=== PATIENT | male | born 1960 | race Caucasian/White ===

== ENCOUNTER 2022-09-04 07:10 | Outpatient (CLI) | payer OTHER, SELFPAY ==
--- NOTE | 2022-09-04 08:21 | W.ANESCHARGE ---
Anesthesia Charges Start Date/Time Anesthesia Start Date: 09/04/22 Anesthesia Start Time: 07:57 Stop Date/Time Anesthesia Stop Date: 09/04/22 Anesthesia Stop Time: 08:20
--- NOTE | 2022-09-04 08:27 | W.ANESCHARGE ---
Anesthesia Charges Start Date/Time Anesthesia Start Date: 09/04/22 Anesthesia Start Time: 07:57 Stop Date/Time Anesthesia Stop Date: 09/04/22 Anesthesia Stop Time: 08:20
== END 2022-09-04 07:11 | disposition home or self-care (01) ==
LOC: OP CLINIC 07:14
PROVIDERS: PCP Family Medicine; Visit Provider Internal Medicine Gastroenterology
DX: R10.13 Epigastric pain (principal); K44.9 Diaphragmatic hernia without obstruction or gangrene; K21.9 Gastro-esophageal reflux disease without esophagitis; R12 Heartburn
CPT/HCPCS: 43239; 731; 88305; J2704; J3490

== ENCOUNTER 2024-06-19 13:00 | Outpatient (RCR) | payer MEDICARE, BC, SELFPAY ==
--- OUTSIDE RECORDS SUMMARY | 2024-05-26 12:57 | XMS_ITS | Data Portability ---
Author Organization [facility] Address [address] [place] [id number] Care Team Providers Care Survey Technologist Name Role Phone JUAN NAVA Primary Care Provider [phone] Assessment No assessment recorded. Plan of Treatment Reminders Order Date Submit Date Provider Last Modified By Organization Details Last Modified Time Details Appointments PSA 10 2024 10:00A M [facility] Not available Not available Not available ESTABL ISHED 10 2024 10:20A M Walker Krishnan MD Not available Not available Not available Lab urinal ysis, dipsti ck 2022 023 [facility], [address], [place], [address], 08/30/2022 11:36:12 urinal ysis, dipsti ck 2022 023 [facility], [address], [place], [address], 10/04/2022 16:51:10 PSA, serum or plasma 2022 023 [facility], [address], [place], [address], 02/28/2023 11:16:07 PSA, total, serum or plasma 2022 023 [email or web address] [facility], [address], [place], [address], 02/28/2023 12:03:42 PSA, serum or plasma 2023 024 [email or web address] [facility], [address], [place], [address], 08/29/2023 11:04:50 PSA, total, serum or plasma 2023 024 [email or web address] [facility], [address], [place], [address], 08/30/2023 10:44:45 PSA, serum or plasma 2023 024 [email or web address] [facility], [address], [place], [address], 03/03/2024 11:41:42 PSA, total, serum or plasma 2023 024 [email or web address] [facility], [address], [place], [address], 03/04/2024 08:16:00 Referral None record ed. Procedures None record ed. Surgeries transu rethra l resect ion of prosta te (SURG) 2022 023 [email or web address] Not available 09/04/2022 11:15:26 Imaging MRI, prosta te, w/wo contra st 2022 023 [email or web address] [facility] [place] [facility], [place], [id number], 10/05/2022 14:22:34 Medication Orders None record ed. Patient TargetsNo targets recorded. Patient Instructions Encounter Date Encounter Id Patient Instructions Last Modified By Organization Details Last Modified Time 10/04/2022 [id number] Discussion time - 30 minutes Not available 10/04/2022 17:55:21 Reason for Referral None Reported. Results Created Date Observation Date Name Description Value Unit Range Abnormal Flag Note LastModifiedBy Organization Detail LastModifiedTime 08/31/19 23 08/30/2022 urina lysis , dipst ick Color-Status Yellow Not Available [facility] [address], [place], [address], 08/30/2022 11:35:43 08/31/19 23 08/30/2022 urina lysis , dipst ick pH-Status 6.0 Not Available [facility] [address], [place], [address], 08/30/2022 11:35:43 08/31/19 23 08/30/2022 urina lysis , dipst ick Nitrates-Sta tus negati ve Not Available [facility] [address], [place], [address], 08/30/2022 11:35:43 08/31/19 23 08/30/2022 urina lysis , dipst ick Blood-Status Trace Not Available [facility] [address], [place], [address], 08/30/2022 11:35:43 08/31/19 23 08/30/2022 urina lysis , dipst ick Leuko-Status Negati ve Not Available [facility] [address], [place], [address], 08/30/2022 11:35:43 10/05/19 23 10/04/2022 URINE CULTU RE final report MICROB IOLOGY RESULT S SOURC E Void KNOWN ALLER GIES cital opram TREAT MENT none MEDIA PLATE D AT: Media plate d on 2022 @ 5:01 PM RESUL T No Growt h This lab resul t is being provi ded to you and your provi david at the same time in compl iance with the Centu ry Cures Act. Your provi david may not have had time to revie w and make recom menda tions based on the resul t. Pleas e allow up to one week for provi david revie w. Not Available [facility] [address], [place], [address], 10/07/2022 14:34:02 10/05/19 23 10/04/2022 urina lysis , dipst ick Color-Status Yellow Not Available [facility] [address], [place], [address], 10/04/2022 16:48:55 10/05/19 23 10/04/2022 urina lysis , dipst ick Clarity-Stat us Clear Not Available [facility] [address], [place], [address], 10/04/2022 16:48:55 10/05/19 23 10/04/2022 urina lysis , dipst ick Glucose-Stat us Negati ve Not Available [facility] [address], [place], [address], 10/04/2022 16:48:55 10/05/19 23 10/04/2022 urina lysis , dipst ick Bilirubin-St atus Negati ve Not Available [facility] [address], [place], [address], 10/04/2022 16:48:55 10/05/19 23 10/04/2022 urina lysis , dipst ick Ketones-Stat us Negati ve Not Available [facility] [address], [place], [address], 10/04/2022 16:48:55 10/05/19 23 10/04/2022 urina lysis , dipst ick Nitrates-Sta tus negati ve Not Available [facility] [address], [place], [address], 10/04/2022 16:48:55 10/05/19 23 10/04/2022 urina lysis , dipst ick Blood-Status Large Not Available [facility] [address], [place], [address], 10/04/2022 16:48:55 10/05/19 23 10/04/2022 urina lysis , dipst ick Leuko-Status Small Not Available [facility] [address], [place], [address], 10/04/2022 16:48:55 02/29/20 23 02/28/2023 PSA, serum or plasm a PSA 0.89 ng/mL 0-4.0 Not Available [facility] [address], [place], [address], 02/28/2023 11:15:51 08/29/19 24 08/29/2023 PSA, serum or plasm a PSA 0.78 ng/mL 0-4.0 Not Available [facility] [address], [place], [address], 08/29/2023 11:04:19 03/03/20 24 03/03/2024 PSA, serum or plasm a PSA 0.87ng /mL 0-4.0 NG/mL Not Available [facility] [address], [place], [address], 02/21/2024 14:47:48 09/01/19 23 08/30/2022 bladd er scan (PROC ) No observ ation record ed. BARCODE Not Available 2022 09:06:49 10/06/19 23 10/04/2022 bladd er scan (PROC ) No observ ation record ed. BARCODE Not Available 2022 09:07:29 10/25/19 23 10/24/2022 MRI, prost ate, w/wo contr ast No observ ation record ed. [email or web address] [facility] [place] [address], [place], [address], 11/15/2022 16:57:11 Result Notes None recorded. Procedures Surgical History Date Name Laterality Status Provider Name and Address Organization Details Recorded Time 03/03/20 24 Blood Draw/OBSTETRICIAN GYNECOLOGIST/PSA RESULTS completed Abimael lamb [facility] 03/03/2024 11:22:29 08/29/19 24 OBSTETRICIAN GYNECOLOGIST/blood draw completed Dixie Araya [facility] 08/29/2023 11:04:15 08/29/19 24 Bladder Scan completed Dixie Araya [facility] 08/29/2023 11:21:08 02/29/20 23 Bladder Scan completed Dixie Marshal [facility] 02/28/2023 11:15:37 02/29/20 23 Blood Draw/OBSTETRICIAN GYNECOLOGIST/PSA RESULTS completed Dixielaura Araya [facility] 02/28/2023 11:15:47 10/05/19 23 Bladder Scan completed Walker Krishnan MD [address] [place] [address],[address] [place] [address], [address], [facility] 10/04/2022 16:48:49 09/15/19 23 TRANSURETHRAL RESECTION OF PROSTATE (SURG) completed Amparo Rodríguez [facility] 09/15/2022 11:48:07 08/31/19 23 Bladder Scan completed Walker Krishnan MD [address] [place] [address],[address] [place] [address], [address], [facility] 08/30/2022 11:35:35 04/12/20 Bladder Scan completed Peri Garnica [facility] 04/12/2022 14:35:56 12/31/19 22 Bladder Scan completed Walker Krishnan MD [address] [place] [address],[address], [address], [facility] 12/30/2021 12:47:29 03/03/20 21 Colonoscopy completed Walker Krishnan MD [address] [place] [address],[address], [place], [address], [facility] 12/30/2021 12:45:11 Removal of testis completed Walker lui MD [address] [place] [address],[address], [address], [facility] 12/30/2021 12:46:38 thyroidectomy completed Walker Krishnan MD [address], [place], [address], [facility] 12/30/2021 12:45:57 Imaging Results Imaging Date Name Status LastModified by Organiz ation Details LastModified Time 08/30/2022 bladder scan (PROC) completed BARCODE Information not available 08/31/2022 09:06:49 10/04/2022 bladder scan (PROC) completed BARCODE Information not available 10/05/2022 09:07:29 10/24/2022 MRI, prostate, w/wo contrast completed [email or web address] [facility] [place] [address], [place], [address], 11/15/2022 16:57:11 Procedure Notes None recorded. Medical Equipment None Reported. Allergies Allergen ID Allergen Name Allergen Category Reaction Reaction Severity Criticality Documentation Date Start Date Code Code System Note Provider Name and Address Organization Details Recorded Time [id number] citalopra m medicatio n Not available Not available Not available 12/30/2021 2556 RxNorm Not Available Not Available Not Available Medications Name Sig Start Date Stop Date Status Note LastModified by Organization Details LastModified Time atorvastati n 40 mg tablet TAKE ONE TABLET BY MOUTH ONE TIME DAILY* active Not Available Not Available No t Available levothyroxi ne 137 mcg tablet TAKE ONE TABLET BY MOUTH ONE TIME DAILY BEFORE BREAKFAST * active Not Available Not Available No t Available prednisone 20 mg tablet TAKE 2 TABLETS BY MOUTH DAILY FOR 5 DAYS. 04/12 completed Not Available Not Available Not Available amlodipine 2.5 mg tablet TAKE ONE TABLET BY MOUTH ONE TIME DAILY* 03/03 completed Not Available Not Available Not Available amlodipine 5 mg tablet TAKE ONE TABLET BY MOUTH ONE TIME DAILY* active Not Available Not Available No t Available prochlorper azine maleate 10 mg tablet TAKE ONE TABLET BY MOUTH EVERY SIX HOURS NEEDED FOR NAUSEA AND VOMITING* 03/03 completed Not Available Not Available Not Available pantoprazol e 20 mg tablet,nicki yed release TAKE 2 TABLETS BY MOUTH EVERY DAY 12/30 completed Not Available Not Available Not Available meclizine 25 mg tablet take 0.5 - 1 tablet by mouth three times daily as needed.* 03/03 completed Not Available Not Available Not Available pantoprazol e 40 mg tablet,nicki yed release TAKE ONE TABLET BY MOUTH ONE TIME DAILY* active Not Available Not Available No t Available losartan 25 mg tablet TAKE ONE TABLET BY MOUTH ONE TIME DAILY* active Not Available Not Available No t Available montelukast 10 mg tablet TAKE ONE TABLET BY MOUTH AT BEDTIME* 03/03 completed Not Available Not Available Not Available cefuroxime axetil 500 mg tablet 10/04 completed Not Available Not Available Not Available albuterol sulfate HFA 90 mcg/actuati on aerosol inhaler INHALE 1 TO 2 PUFFS BY MOUTH EVERY 4 HOURS IF NEEDED. 02/28 completed Not Available Not Available Not Available fluticasone propionate 50 mcg/actuati on nasal spray,suspe nsion Inhale 2 Sprays into both nostrils once daily.* active Not Available Not Available No t Available calcitriol 0.25 mcg capsule TAKE ONE CAPSULE BY MOUTH ONE TIME DAILY* active Not Available Not Available No t Available finasteride 5 mg tablet TAKE 1 TABLET BY MOUTH EVERY DAY IN THE MORNING 02/28 completed Not Available Not Available Not Available rizatriptan 5 mg tablet TAKE 1 - 2 TABLETS BY MOUTH AT THE FIRST SIGN OF MIGRAINE. MAY REPEAT AGAIN AFTER 2 HOURS. DO NOT EXCEED 6 TABLETS (30MG) IN 24 HOURS. MUST 10/04 completed Not Available Not Available Not Available tadalafil 5 mg tablet Take 1 Tablet (5 mg) by mouth once daily.* 02/28 completed Not Available Not Available Not Available hydrochloro thiazide 12.5 mg tablet TAKE ONE TABLET BY MOUTH ONE TIME DAILY* active Not Available Not Available No t Available Dulera 200 mcg-5 mcg/actuati on HFA aerosol inhaler INHALE 2 PUFFS BY MOUTH TWICE A DAY 10/04 completed Not Available Not Available Not Available calcium 1,000 mg (as carbonate)- vitamin D3 20 mcg (800 unit) tablet TAKE 3 TABLETS BY MOUTH EVERY DAY active Not Available Not Available No t Available fluticasone 113 mcg-salmete rol 14 mcg/actuati on breath activated powdr INHALE ONE PUFF BY MOUTH TWICE DAILY. RINSE MOUTH 10/04 completed Not Available Not Available Not Available BinaxNOW COVID-19 Ag Self Test kit USE DIRECTED PER PACKAGING . 12/30 completed Not Available Not Available Not Available Paxlovid 300 mg (150 mg x 2)-100 mg tablets in a dose pack PLEASE SEE ATTACHED FOR DETAILED DIRECTION S 12/30 completed Not Available Not Available Not Available Vitals Date Recorded Body height Body mass index (BMI) Body weight Provider Name and Address Organization Details Last Updated DateTime 08/30/2022 187.96 cm 27 kg/m2 87635.4 g Walker Krishnan MD [address] [place] [address],[address] [place] [address] 08/30/2022 11:34:35 Date Recorded Body height Body mass index (BMI) Body weight Provider Name and Address Organization Details Last Updated DateTime 10/04/2022 187.96 cm 27.6 kg/m2 49379.36 g Walker Krishnan MD [address] [place], [place] [address] [place] [address] 10/04/2022 16:44:19 Date Recorded Body height Body mass index (BMI) Body weight Provider Name and Address Organization Details Last Updated DateTime 02/28/2023 187.96 cm 27.6 kg/m2 [address] [facility] 02/28/2023 11:13:39 Date Recorded Body height Body mass index (BMI) Body weight Provider Name and Address Organization Details Last Updated DateTime 08/29/2023 187.96 cm 27.6 kg/m2 11514.36 cindi Araya [facility] 08/29/2023 11:11:25 Date Recorded Body height Body mass index (BMI) Body weight Provider Name and Address Organization Details Last Updated DateTime 03/03/2024 187.96 cm 27.6 kg/m2 95084.36 cindi salazar [facility] 03/03/2024 11:20:42 Social History Question Answer Notes LastModified by Organizat ion Details LastModified Time Tobacco Smoking Status Never Smoker Walker Krishnan MD [address] [place] [address],[address], [address] [place] [address] [facility] 12/30/2021 12:44:46 What Is Your Level Of Alcohol Consumption? Occasional Information not available 12/30/2021 How Many Times Per Week Do You Consume Alcohol? 1-2 Times Per Week Information not available 10/04/2022 What Is Your Level Of Caffeine Consumption? Occasional [email or web address] Information not available 08/29/2023 Are You Currently Employed? No Information not available 10/04/2022 Recreational Drug Use No Information not available 10/04/2022 What Was The Date Of Your Most Recent Tobacco Screening? 03/03/2024 [email or web address] Information not available 03/03/2024 Have You Ever Been Counseled For Unhealthy Alcohol Use? No [email or web address] Information not available 08/29/2023 What Is Your Relationship Status? Information not available 10/04/2022 Do You Use Any Illicit Or Recreational Drugs? No [email or web address] Information not available 08/29/2023 Has Tobacco Cessation Counseling Been Provided? No Information not available 10/04/2022 How Many Days In The Past Year Have You Consumed 5 Or More Drinks? -1 [email or web address] Information not available 08/29/2023 Sex: Unknown Functional Status None recorded. Mental Status None recorded. Family History Relationship Description Onset Age of this Age Resolved Age Notes LastModified by Organization Details LastModified Time Father No current problems or disability Not available 12/30 12:44:26 Mother No current problems or disability Not available 12/30 12:44:26 Medical History Condition Response High Blood Pressure Y Kidney Stones N Depression N Lung Disease N GERD/Acid Reflux Y Sexually Transmitted Infection N Cancer Y High Cholesterol Y Diabetes N Bleeding Disorder N Heart Disease N Immunizations Vaccine Type Date Status Note Provider Nam e and Address Organization Details Recorded Time COVID-19, mRNA, LNP-S, bivalent, PF, 50 mcg/0.5 mL or 25mcg/0.25 mL dose 2 completed [facility] 08/29/2023 11:11:32 Influenza, split virus, quadrivalent, PF 2 completed [facility] 08/29/2023 11:11:32 Tdap 2 completed Abimael lamb null, [facility] 03/03/2024 11:20:47 COVID-19, mRNA, LNP-S, PF, 100 mcg/0.5mL dose or 50 mcg/0.25mL dose 1 completed Walker Krishnan MD [address] [place] [address],[address], [address], [facility] 12/30/2021 12:42:39 pneumococcal polysaccharide PPV23 9 completed Walker Krishnan MD [address] [place] [address],[address], [address], [facility] 12/30/2021 12:42:39 COVID-19, mRNA, LNP-S, PF, 100 mcg/0.5mL dose or 50 mcg/0.25mL dose 1 completed Walker Krishnan MD [address] [place] [address],[address] [place] [address], [address], [facility] 12/30/2021 12:42:39 COVID-19, mRNA, LNP-S, PF, 100 mcg/0.5mL dose or 50 mcg/0.25mL dose 1 completed Walker Krishnan MD [address] [place] [address],[address], [place], [address], [facility] 12/30/2021 12:42:39 Influenza, split virus, quadrivalent, preservative 7 completed Dixie Grossmanoza null, [facility] 02/28/2023 11:13:48 zoster recombinant 9 completed Dixie Araya null, [facility] 02/28/2023 11:13:48 zoster recombinant 9 completed Dixie Araya null, [facility] 02/28/2023 11:13:48 MMRV 9 completed Dixie Grossmanoza null, [facility] 02/28/2023 11:13:48 COVID-19, mRNA, LNP-S, PF, 100 mcg/0.5mL dose or 50 mcg/0.25mL dose 2 completed Dixie Grossmanoza null, [facility] 02/28/2023 11:13:48 Tdap 2 completed Dixie Grossmanoza null, [facility] 02/28/2023 11:13:48 Influenza, split virus, quadrivalent, PF 0 completed Dixielaura Grossmanoza null, [facility] 02/28/2023 11:13:48 Influenza, split virus, quadrivalent, PF 9 completed Dixie Araya null, [facility] 02/28/2023 11:13:48 Influenza, split virus, quadrivalent, PF 5 completed Dixie Araya null, [facility] 02/28/2023 11:13:48 Influenza, split virus, quadrivalent, PF 1 completed Dixielaura Fairbanksa null, [facility] 02/28/2023 11:13:48 Influenza, split virus, quadrivalent, PF 6 completed Dixie Araya null, [facility] 02/28/2023 11:13:48 Influenza, split virus, quadrivalent, PF 8 completed Dixie Araya null, [facility] 02/28/2023 11:13:49 Past Encounters Encounter ID Performer Location Encounter Start Date Encounter Closed Date Diagnosis/Indication Diagnosis SNOMED-CT Code Diagnosis ICD10 Code [id number] MD BARBIE [facility] [address] [place] [address] 12/30/2021 12:03:19 01/02/2022 12:13:20 Lower urinary tract symptoms due to benign prostatic hypertrophy 4413800178 9101 N40.1 [id number] MD BARBIE [facility] [address] [place] [address] 04/12/2022 14:07:27 04/17/2022 12:34:29 Lower urinary tract symptoms due to benign prostatic hypertrophy 9264770231 9101 N40.1 [id number] MD BARBIE [facility] [address] [place] [address] 08/30/2022 11:13:19 09/01/2022 09:52:35 Lower urinary tract symptoms due to benign prostatic hypertrophy 0104277788 9101 N40.1 [id number] [facility] [address] [place] [address] 10/04/2022 16:03:36 10/09/2022 11:24:18 Lower urinary tract symptoms due to benign prostatic hypertrophy 9199285591 9101 N40.1 Carcinoma of prostate 25 5949933 C61 Slowing of urinary stream 03387373 R39.12 [id number] Walker Krishnan MD _[facility] [address] [place] [id number] 02/28/2023 10:29:37 03/10/2023 14:05:17 Carcinoma of prostate 932766250 C61 Lower urin maik tract symptoms due to benign prostatic hypertrophy 7493096910 9101 N40.1 [id number] Walker Krish[facility] [address] [place] [id number] 08/29/2023 10:14:37 09/03/2023 11:32:01 Carcinoma of prostate 069972972 C61 Lower urin maik tract symptoms due to benign prostatic hypertrophy 2317573947 9101 N40.1 [id number] Walker Krishnan MD [facility] [employer] [place] [id number] 03/03/2024 10:46:03 03/04/2024 10:23:39 Carcinoma of prostate 057953825 C61 Lower urin maik tract symptoms due to benign prostatic hypertrophy 2218113222 9101 N40.1 Health Concerns Section Related Observation LastModified by Organization Detai ls LastModified Time None Recorded Concern Status LastModified by Organization Details LastModified Time None Recorded Advance Directives Directive None Recorded Payers Encounter Date Sequence Insurance Name Policy Number Policy Nguyễn Covered Member ID Nguyễn Member ID Guarantor Name 08/30/2022 1 [employer] - INDIVIDUAL [employer] FAMILY (O) [id number] Zain Lance [id number] Zain Lance 10/04/2022 1 [employer] - INDIV[employer]UAL [employer] FAMILY (O) [id number] Zain Lance [id number] Zain Lance 02/28/2023 1 [facility] - INDIVIDUAL AND FAMILY ([facility] [id number] Zain Lance [id number] Zain Lance 08/29/2023 1 [facility] - INDIVIDUAL AND FAMILY ([facility] [id number] Zain Lance [id number] Zain Lance 03/03/2024 2 [id number] Zain Lance [id number] Zain Lance Notes Date Note Type Note Provider Name and Address Organization Details Recorded Time 08/30/2022 text/html 61 yo male with 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 He reports persistent issues with dizziness and vertigo over the past year. He stopped Flomax - due to nasal stuffiness and dizziness.He is on Proscar 5 mg daily (started February 2016) and Cialis 5 mg daily. 08/08/21 - He presents for evaluation of hematuria (one episode of blood in toilet - had dysuria at that time). He He voids every 3-4 hours during the day and 1-2x/night. He denies hesitancy, intermittent flow, and dysuria. (declined Cystoscopy) 12/30/21 - He presents for follow-up on urination. He had to hold Cialis for a week (while taking Paxlovid for COVID). He reports significant worsening of his symptoms (hesitancy, slow stream, and frequency). He restarted it this week and his urination is better. He voids every 3-4 hours during the day and 2-3x/night. 04/12/22 - He presents for follow-up urination. He is voiding okay - denies hesitancy, urgency, and dysuria. He will be traveling to [facility] (Jul) and [place] (January). 08/30/22 - He presents for follow-up on urination. He voids every 2-4 hours during the day and 2-3x/night. He reports hesitancy and slow stream - denies dysuria. He would like to stop medications for BPH if possible.- UA - trace blood, neg yoshi- PVR = 157 mL PSA - 1.47 (03/10/11)- 1.85 (03/15/12)- 1.39 (03/28/13)- 2.68 (03/28/14)- 1.70 (04/02/15)- 1.42 (03/22/16)- 1.50 (04/16/17)- 0.90 (05/07/18)- 0.82 (04/22/19)- 0.99 (07/19/20)- 0.88 (09/06/21)- 1.0 (08/22/22) CT Urogram (05/11/21) - Right - 3 (1mm) stones in kidney- + Bilateral renal scarring - no renal masses or filling defects- Prostate - 30 gm (with intravesical median lobe) Walker Krishnan MD [address], [place], [address], [facility] 08/30/2022 12:21:45 10/04/2022 text/html 61 yo male with Prostate cancer - pT1b William 3+3 = 6 (6% of tissue) (dx 09/14/22) and 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 He reports persistent issues with dizziness and vertigo over the past year. He stopped Flomax - due to nasal stuffiness and dizziness.He is on Proscar 5 mg daily (started February 2016) and Cialis 5 mg daily. 08/08/21 - He presents for evaluation of hematuria (one episode of blood in toilet - had dysuria at that time). He He voids every 3-4 hours during the day and 1-2x/night. He denies hesitancy, intermittent flow, and dysuria. (declined Cystoscopy) 12/30/21 - He presents for follow-up on urination. He had to hold Cialis for a week (while taking Paxlovid for COVID). He reports significant worsening of his symptoms (hesitancy, slow stream, and frequency). He restarted it this week and his urination is better. He voids every 3-4 hours during the day and 2-3x/night. 04/12/22 - He presents for follow-up urination. He is voiding okay - denies hesitancy, urgency, and dysuria. He will be traveling to [facility] (Jul) and [place] (January). - s/p TURP (09/14/22) - 11 gm - Prostate cancer - pT1b [place] 3+3 = 6 (6% of tissue) 10/05/23 - He presents for follow-up on urination and Prostate cancer. He voids every 2-3 hours during the day and 1x/night. He denies hesitancy or dysuria. His stream is strong - denies dysuria.- UA = large blood - small LE- PVR = 0 mL PSA - 1.47 (03/10/11)- 1.85 (03/15/12)- 1.39 (03/28/13)- 2.68 (03/28/14)- 1.70 (04/02/15)- 1.42 (03/22/16)- 1.50 (04/16/17)- 0.90 (05/07/18)- 0.82 (04/22/19)- 0.99 (07/19/20)- 0.88 (09/06/21)- 1.0 (08/22/22) CT Urogram (05/11/21) - Right - 3 (1mm) stones in kidney- + Bilateral renal scarring - no renal masses or filling defects- Prostate - 30 gm (with intravesical median lobe) Walker Krishnan MD [address] [facility],[address], [place], [address], [facility] 10/04/2022 17:55:35 02/28/2023 text/html 62 yo male with Prostate cancer - pT1b [place] 3+3 = 6 (6% of tissue) (dx 09/14/22) and 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 He reports persistent issues with dizziness and vertigo over the past year. He stopped Flomax - due to nasal stuffiness and dizziness.He was on Proscar 5 mg daily (February 2016) - November 2022) and Cialis 5 mg daily. - s/p TURP (09/14/22) - 11 gm - Prostate cancer - pT1b [place] 3+3 = 6 (6% of tissue)- [place]ipher - 0.34 (low risk)- on Active surveillance 10/04/22 - He presents for follow-up on urination and Prostate cancer. He voids every 2-3 hours during the day and 1x/night. He denies hesitancy or dysuria. His stream is strong - denies dysuria. 02/28/23 - He presents for follow-up on Prostate cancer and urination. He denies trouble with urination. He voids every 2-4 hours during the day and 1x/night. He stopped Finasteride and Cialis in November 2022.- PSA = 0.89- PVR - 48mL PSA - 1.47 (03/10/11)- 1.85 (03/15/12)- 1.39 (03/28/13)- 2.68 (03/28/14)- 1.70 (04/02/15)- 1.42 (03/22/16)- 1.50 (04/16/17)- 0.90 (05/07/18)- 0.82 (04/22/19)- 0.99 (07/19/20)- 0.88 (09/06/21)- 1.0 (08/22/22)- 0.89 (02/28/23) Prostate MRI (10/24/22) - 14 gm - + TUR defect - no suspicious lesions [place] - 0.34 (low risk) CT Urogram (05/11/21) - Right - 3 (1mm) stones in kidney- + Bilateral renal scarring - no renal masses or filling defects- Prostate - 30 gm (with intravesical median lobe) Walker Krishnan MD [address] [facility],[address], [place], [address], [place] - [facility] 03/01/2023 19:30:08 08/29/2023 text/html 62 yo male with Prostate cancer - pT1b [place] 3+3 = 6 (6% of tissue) (dx 09/14/22) and 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 He reports persistent issues with dizziness and vertigo over the past year. He stopped Flomax - due to nasal stuffiness and dizziness.He was on Proscar 5 mg daily (February 2016) - November 2022) and Cialis 5 mg daily. - s/p TURP (09/14/22) - 11 gm - Prostate cancer - pT1b [place] 3+3 = 6 (6% of tissue)- [place] - 0.34 (low risk)- on Active surveillance 10/04/22 - He presents for follow-up on urination and Prostate cancer. He voids every 2-3 hours during the day and 1x/night. He denies hesitancy or dysuria. His stream is strong - denies dysuria. 02/28/23 - He presents for follow-up on Prostate cancer and urination. He denies trouble with urination. He voids every 2-4 hours during the day and 1x/night. He stopped Finasteride and Cialis in November 2022. 08/29/23- He presents for follow-up on Prostate cancer and urination. He voids every 2-4 hours during the day and 1x/night.- PSA = 0.78- PVR - 0 mL PSA - 1.47 (03/10/11)- 1.85 (03/15/12)- 1.39 (03/28/13)- 2.68 (03/28/14)- 1.70 (04/02/15)- 1.42 (03/22/16)- 1.50 (04/16/17)- 0.90 (05/07/18)- 0.82 (04/22/19)- 0.99 (07/19/20)- 0.88 (09/06/21)- 1.0 (08/22/22)- 0.89 (02/28/23)- 0.78 (08/29/23) Prostate MRI (10/24/22) - 14 gm - + TUR defect - no suspicious lesions [place] - 0.34 (low risk) CT Urogram (05/11/21) - Right - 3 (1mm) stones in kidney- + Bilateral renal scarring - no renal masses or filling defects- Prostate - 30 gm (with intravesical median lobe) Walker Krishnan MD [address] [facility],[address], [place], [address], [facility] 09/01/2023 18:48:28 03/03/2024 text/html 63 yo male with Prostate cancer - pT1b [place] 3+3 = 6 (6% of tissue) (dx 09/14/22) and 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 He reports persistent issues with dizziness and vertigo over the past year. He stopped Flomax - due to nasal stuffiness and dizziness.He was on Proscar 5 mg daily (February 2016) - November 2022) and Cialis 5 mg daily. - s/p TURP (09/14/22) - 11 gm - Prostate cancer - pT1b [place] 3+3=6 (6% of tissue)- [place] - 0.34 (low risk)- on Active surveillance 10/04/22 - He presents for follow-up on urination and Prostate cancer. He voids every 2-3 hours during the day and 1x/night. He denies hesitancy or dysuria. His stream is strong - denies dysuria. 02/28/23 - He presents for follow-up on Prostate cancer and urination. He denies trouble with urination. He voids every 2-4 hours during the day and 1x/night. He stopped Finasteride and Cialis in November 2022. 08/29/23- He presents for follow-up on Prostate cancer and urination. He voids every 2-4 hours during the day and 1x/night. 03/03/24e presents for follow-up on Prostate cancer and urination. He voids every 2-4 hours during the day and 1-2x/night.- PSA = 0.87 PSA - 1.47 (03/10/11)- 1.85 (03/15/12)- 1.39 (03/28/13)- 2.68 (03/28/14)- 1.70 (04/02/15)- 1.42 (03/22/16)- 1.50 (04/16/17)- 0.90 (05/07/18)- 0.82 (04/22/19)- 0.99 (07/19/20)- 0.88 (09/06/21)- 1.0 (08/22/22)- 0.89 (02/28/23)- 0.78 (08/29/23)- 0.87 (03/03/24) Prostate MRI (10/24/22) - 14 gm - + TUR defect - no suspicious lesions [place] - 0.34 (low risk) CT Urogram (05/11/21) - Right - 3 (1mm) stones in kidney- + Bilateral renal scarring - no renal masses or filling defects- Prostate - 30 gm (with intravesical median lobe) Walker Krishnan MD [address] [facility],[address], [place], [address], [facility] 03/03/2024 11:48:14
--- OUTSIDE RECORDS SUMMARY | 2024-05-29 12:54 | XMS_ITS | Continuity of Care Document ---
Author Organization [facility], [facility] Address [address] [place] [address] Care Team Providers Care Business Objects Report Developer Name Role Phone ELIJAH JUAN Primary Care Provider [phone] Assessment No assessment recorded. Plan of Treatment Reminders Order Date Submit Date Provider Last Modified By Organization Details Last Modified Time Details Appointments PSA 10 2024 10:00A M [facility] Not available Not available Not available ESTABL ISHED 10 2024 10:20A M Walker Krishnan MD Not available Not available Not available Lab PSA, serum or plasma 2023 024 laci lamb [facility], [address], [place], [address], 03/03/2024 11:41:42 PSA, total, serum or plasma 2023 024 dave [facility], [address], [place], [address], 03/04/2024 08:16:00 Referral None record ed. Procedures None record ed. Surgeries None record ed. Imaging None record ed. Medication Orders None record ed. Patient TargetsNo targets recorded. Patient InstructionsNo instructions recorded. Reason for Referral None Reported. Results Created Date Observation Date Name Description Value Unit Range Abnormal Flag Note LastModifiedBy Organization Detail LastModifiedTime 03/03/2003/03/2024 PSA, serum or plasm a PSA 0.87ng /mL 0-4.0 NG/mL Not Available [facility] [address], [place], [address], 02/21/2024 14:47:48 Result Notes None recorded. Procedures Surgical History Date Name Laterality Status Provider Name and Address Organization Details Recorded Time 03/03/20 24 Blood Draw/ENCODING MACHINE OPERATOR/PSA RESULTS completed Abimael lamb [facility] 03/03/2024 11:22:29 08/29/19 24 ENCODING MACHINE OPERATOR/blood draw completed Dixie Araya [facility] 08/29/2023 11:04:15 08/29/19 24 Bladder Scan completed Dixie Araya [facility] 08/29/2023 11:21:08 02/29/20 23 Bladder Scan completed Dixielaura Araya [facility] 02/28/2023 11:15:37 02/29/20 23 Blood Draw/ENCODING MACHINE OPERATOR/PSA RESULTS completed Dixielaura Araya [facility] 02/28/2023 11:15:47 10/05/19 23 Bladder Scan completed Walker Krishnan MD [address] [place] [address],[address] [place] [address], [address], [facility] 10/04/2022 16:48:49 09/15/19 23 TRANSURETHRAL RESECTION OF PROSTATE (SURG) completed Amparo Rodríguez [facility] 09/15/2022 11:48:07 08/31/19 23 Bladder Scan completed Walker Krishnan MD [address] [place] [address],[address] [place] [address], [address], [facility] 08/30/2022 11:35:35 04/12/20 22 Bladder Scan completed Peri Garnica [facility] 04/12/2022 14:35:56 12/31/19 22 Bladder Scan completed Walker Krishnan MD [address] [place] [address],[address], [place], [address], [facility] 12/30/2021 12:47:29 03/03/20 21 Colonoscopy completed Walker Krishnan MD [address] [place] [address],[address], [address], [facility] 12/30/2021 12:45:11 Removal of testis completed Walker lui MD [address] [place] [address],[address], [address], [facility] 12/30/2021 12:46:38 thyroidectomy completed Walker Krishnan MD [address] [facility],[address], [place], [address], [facility] 12/30/2021 12:45:57 Imaging Results None recorded. Procedure Notes None recorded. Medical Equipment None Reported. Allergies Allergen ID Allergen Name Allergen Category Reaction Reaction Severity Criticality Documentation Date Start Date Code Code System Note Provider Name and Address Organization Details Recorded Time [id number] citalopra m medicatio n Not available [...] Updated DateTime 03/03/2024 187.96 cm 27.6 kg/m2 28434.36 g Abimael Valdovinos-Narcisa ero [facility] 03/03/2024 11:20:42 Social History Question Answer Notes LastModified by Organizat ion Details LastModified Time Tobacco Smoking Status Never Smoker Walker Krishnan MD [address] [facility],[address], [place], [address], [facility] 12/30/2021 12:44:46 What Is Your Level Of Alcohol Consumption? Occasional Information not available 12/30/2021 How Many Times Per Week Do You Consume Alcohol? 1-2 Times Per Week Information not available 10/04/2022 What Is Your Level Of Caffeine Consumption? Occasional [email or web address] Information not available 08/29/2023 Are You Currently Employed? No Information not available 10/04/2022 Recreational Drug Use No Information not available 10/04/2022 What Was The Date Of Your Most Recent Tobacco Screening? 03/03/2024 [email or web address] Information not available 03/03/2024 Have You Ever Been Counseled For Unhealthy Alcohol Use? No [email or web address] Information not available 08/29/2023 What Is Your Relationship Status? Information not available 10/04/2022 Do You Use Any Illicit Or Recreational Drugs? No [email or web address] Information not available 08/29/2023 Has Tobacco Cessation Counseling Been Provided? No Information not available 10/04/2022 How Many Days In The Past Year Have You Consumed 5 Or More Drinks? -1 Information not available 08/29/2023 Sex: Unknown Functional Status None recorded. Mental Status None recorded. Family History Relationship Description Onset Age of this Age Resolved Age Notes LastModified by Organization Details LastModified Time Father No current problems or disability Not available 12/30 12:44:26 Mother No current problems or disability Not available 12/30 12:44:26 Medical History Condition Response Sexually Transmitted Infection N Diabetes N Bleeding Disorder N High Blood Pressure Y Kidney Stones N Cancer Y Depression N Lung Disease N High Cholesterol Y GERD/Acid Reflux Y Heart Disease N Immunizations Vaccine Type Date Status Note Provider Nam e and Address Organization Details Recorded Time COVID-19, mRNA, LNP-S, bivalent, PF, 50 mcg/0.5 mL or 25mcg/0.25 mL dose 2 completed Dixie Araya null, [facility] 08/29/2023 11:11:32 Influenza, split virus, quadrivalent, PF 2 completed Dixie Araya null, [facility] 08/29/2023 11:11:32 Tdap 2 completed Abimael lamb null, [facility] 03/03/2024 11:20:47 COVID-19, mRNA, LNP-S, PF, 100 mcg/0.5mL dose or 50 mcg/0.25mL dose 1 completed Walker Krishnan MD [address] [place] [address],[address] [place] [address], [address] [place] [address], [facility] 12/30/2021 12:42:39 pneumococcal polysaccharide PPV23 9 completed Walker Krishnan MD [address] [place] [address],[address], [address], [facility] 12/30/2021 12:42:39 COVID-19, mRNA, LNP-S, PF, 100 mcg/0.5mL dose or 50 mcg/0.25mL dose 1 completed Walker Krishnan MD [address] [place] [address],[address], [address], [facility] 12/30/2021 12:42:39 COVID-19, mRNA, LNP-S, PF, 100 mcg/0.5mL dose or 50 mcg/0.25mL dose 1 completed Walker Krishnan MD [address] [place] [address],[address], [address], [facility] 12/30/2021 12:42:39 Influenza, split virus, quadrivalent, preservative 7 completed Dixie Araya null, [facility] 02/28/2023 11:13:48 zoster recombinant 9 completed Dixie kowalski, [facility] 02/28/2023 11:13:48 zoster recombinant 9 completed [facility] 02/28/2023 11:13:48 MMRV 9 completed [facility], [facility] 02/28/2023 11:13:48 COVID-19, mRNA, LNP-S, PF, 100 mcg/0.5mL dose or 50 mcg/0.25mL dose 2 completed [facility], [facility] 02/28/2023 11:13:48 Tdap 2 completed [facility], [facility] 02/28/2023 11:13:48 Influenza, split virus, quadrivalent, PF 0 completed [facility], [facility] 02/28/2023 11:13:48 Influenza, split virus, quadrivalent, PF 9 completed [facility], [facility] 02/28/2023 11:13:48 Influenza, split virus, quadrivalent, PF 5 completed [facility], [facility] 02/28/2023 11:13:48 Influenza, split virus, quadrivalent, PF 1 completed [facility], [facility] 02/28/2023 11:13:48 Influenza, split virus, quadrivalent, PF 6 completed [facility], [facility] 02/28/2023 11:13:48 Influenza, split virus, quadrivalent, PF 8 completed [facility] 02/28/2023 11:13:49 Past Encounters Encounter ID Performer Location Encounter Start Date Encounter Closed Date Diagnosis/Indication Diagnosis SNOMED-CT Code Diagnosis ICD10 Code [id number] Walker Krishnan MD [facility] [address] [address] 03/03/2024 10:46:03 03/04/2024 10:23:39 Carcinoma of prostate 475561430 C61 Lower urin maik tract symptoms due to benign prostatic hypertrophy 9466420131 9101 N40.1 Health Concerns Section Related Observation LastModified by Organization Detai ls LastModified Time None Recorded Concern Status LastModified by Organization Details LastModified Time None Recorded Payers Encounter Date Sequence Insurance Name Policy Number Policy Nguyễn Covered Member ID Nguyễn Member ID Guarantor Name 03/03/2024 2 [facility] [id number] Zain Lance [id number] Zain Lance Notes Date Note Type Note Provider Name and Address Organization Details Recorded Time 03/03/2024 text/html 63 yo male with Prostate cancer - pT1b [place] 3+3 = 6 (6% of tissue) (dx 09/14/22) and H/O testicular cancer (Seminoma - s/p Left orchiectomy and XRT at [place] in 1997 - no recurrence after 15 years) and BPH. He reports persistent issues with dizziness and vertigo over the past year. He stopped Flomax - due to nasal stuffiness and dizziness.He was on Proscar 5 mg daily (February 2016) - November 2022) and Cialis 5 mg daily. - s/p TURP (09/14/22) - 11 gm - Prostate cancer - pT1b [place] 3+3=6 (6% of tissue)- [place] - 0.34 [...] intravesical median lobe) Walker Krishnan MD [address] [facility],[address], [place], [address], [place] [facility] 03/03/2024 11:48:14
== END 2024-07-01 10:05 | disposition home or self-care (01) ==
PROVIDERS: PCP Family Medicine; Visit Provider Family Medicine
DX: M77.8 Other enthesopathies, not elsewhere classified (principal); M25.532 Pain in left wrist; M25.332 Other instability, left wrist; M25.342 Other instability, left hand; Z51.89 Encounter for other specified aftercare
CPT/HCPCS: 97032; 97035; 97110; 97140; 97165; X5282

== ENCOUNTER 2025-02-04 13:00 | Outpatient (RCR) | payer MEDICARE, BC, SELFPAY | END 2025-04-06 11:25 | disposition home or self-care (01) | PROVIDERS: PCP Family Medicine; Visit Provider Family Medicine | DX: S76.012D Strain of muscle, fascia and tendon of left hip, subsequent encounter (principal); H81.10 Benign paroxysmal vertigo, unspecified ear; Z51.89 Encounter for other specified aftercare | CPT/HCPCS: 97032; 97110; 97140; 97161 ==

== ENCOUNTER 2025-02-26 13:00 | Outpatient (RCR) | payer MEDICARE, BC, SELFPAY | END 2025-04-06 14:35 | disposition home or self-care (01) | PROVIDERS: PCP Family Medicine; Visit Provider Family Medicine | DX: H81.12 Benign paroxysmal vertigo, left ear (principal); Z51.89 Encounter for other specified aftercare | CPT/HCPCS: 95992; 97112; 97161; 97164; 97530 ==